=== PATIENT | female | born 1970 | race Caucasian/White ===

== ENCOUNTER 2017-07-22 21:04 | Inpatient (IN) | payer OTHER ==
[~2017-07-22] VITALS: Ht 162.6 cm; Wt 129.0 kg
[~2017-07-22 21:04] MED LIST: ANTIVERT25 MG PO; XANAX0.25 MG PO; ZESTRIL20 MG PO
[2017-07-23 06:52] VITALS: BP 139/80
[2017-07-23 10:18] VITALS: BP 162/88
[2017-07-23 12:16] LABS: POINT-OF-CARE METER ID UU14314084
[2017-07-23 16:00] VITALS: BP 160/84
[2017-07-23 20:30] VITALS: BP 161/84
[2017-07-23 23:21] VITALS: BP 147/95
[2017-07-24 03:34] VITALS: BP 171/81
[2017-07-24 07:08] LABS: EOSINOPHIL (%) 0 % (0-5); HEMATOCRIT 33.8 % (36.0-46.0); IMMATURE GRANULOCYTE (%) 0.8 % (0.0-0.7); IMMATURE GRANULOCYTE COUNT 0.1 K/uL; INSTRUMENT ABS NEUTROPHIL CT 10.8 K/uL; LYMPHOCYTE COUNT 1.7 K/uL (1.0-2.8); MCH 24.6 PG (29.0-34.0); MCHC 31.1 G/DL (30.0-36.0); MCV 79.3 FL (83-99); MEAN PLAT.VOLUME 11.2 uM^3 (9.5-12.4); MONOCYTE (%) 4.7 % (3-12); MONOCYTE COUNT 0.6 K/uL (0-0.8); NEUTROPHIL (%) 81.5 % (45-76); NEUTROPHIL COUNT 10.8 K/uL (1.8-6.4); PLATELET COUNT 276 K/uL (156-360); RBC DIS.WIDTH-CV 16.5 % (11.8-14.6); RBC DIS.WIDTH-SD 46.6 % (39-53); RED BLOOD COUNT 4.26 M/uL (3.80-5.20); WHITE BLOOD COUNT 13.3 K/uL (4.1-10.2)
[2017-07-24 07:25] VITALS: BP 190/90
[2017-07-24] MEDS ORDERED: ZOFRAN8 MG PO (12:14)
[2017-07-24] MEDS ORDERED: PERCOCET 5/31 TABLET PO (12:18)
== END 2017-07-24 12:56 | disposition home or self-care (01) | DRG 621 ==
LOC: ENRESERV 21:04 → 2SOUTH 07-23 06:00 → ENRESERV 07-23 07:02 → 2SOUTH 07-23 09:22 → 2EASTP 07-23 10:09 → 2SOUTH 07-23 11:38 → 2EASTP 07-24 12:56
PROVIDERS: Surgery
PROC: 0DB64Z3 Excision of Stomach, Percutaneous Endoscopic Approach, Vertical (ICD-10-PCS; principal; 2017-07-23)
DX: E66.01 Morbid (severe) obesity due to excess calories (principal); Z68.42 Body mass index [BMI] 45.0-49.9, adult; I10 Essential (primary) hypertension; G47.30 Sleep apnea, unspecified; E78.1 Pure hyperglyceridemia; M10.9 Gout, unspecified; F41.9 Anxiety disorder, unspecified; Z90.49 Acquired absence of other specified parts of digestive tract; Z83.3 Family history of diabetes mellitus; Z82.49 Family history of ischemic heart disease and other diseases of the circulatory system; Z82.5 Family history of asthma and other chronic lower respiratory diseases
CPT/HCPCS: 36415; 80053; 82948; 84702; 85025; 85610; 85730; 94660; J0131; J0330; J0690; J1100; J1170; J1644; J1650; J2405; J2550; J2710; J2765; J3010; J7120; S0020